=== PATIENT | female | born 1950 ===

== ENCOUNTER 2023-11-08 00:30 | Day surgery (SDC) | payer MEDICARE, OTHER, SELFPAY ==
[2023-11-08 09:04] VITALS: BP 147/68; PULSE 55; RESP 14; O2SAT 97
[2023-11-08 09:10] VITALS: BMI 38.7
--- NOTE | 2023-11-08 10:37 | WPDHPUPDATE1 ---
History and Physical Update Update Date/Time: 11/08/23 10:37 History and Physical has been reviewed, including an updated exam of the patient. There are NO changes in the patient's condition. Risks, benefits, and alternatives have been discussed and questions answered. Patient agrees to proceed with procedure.
--- NOTE | 2023-11-08 10:37 | W.PM.PROC2 ---
Procedure Note - Detailed Date of Procedure 11/08/23 Pre-op Diagnosis syncope Post-op Diagnosis Same Procedure Performed loop recorder implantationr Surgeon Karl Rivas MD Anesthesia Local ( 1% lidocaine) Indications recurrent syncope Findings Brief History of Present Illness: Patient is a very pleasant 72 yo female with past medical history significant for diabetes mellitus, hypertension, hyperlipidemia and history of symptomatic frequent PVCs with recurrent unexplained near-syncope and syncopal episodes with previously documented asymptomatic 3.1 second pause referred for loop recorder implantation for further evaluation for syncope. Description of Procedure After verbal and written informed consent was obtained from the patient risks, benefits, and alternatives explained in detail the patient agreed to proceed with the plan of care as outlined above. Patient was evaluated at bedside in the [facility] procedure room. Patient was placed the appropriate supine position. Left anterior chest wall was prepped and draped in the usual sterile fashion. Operators in appropriate sterile garb. The left 4th intercostal space was identified and marked. Utilizing approximately 30 cc of 1% subcutaneous lidocaine the left anterior chest wall was then locally anesthetized. After local anesthesia was achieved, 2 fingerbreadths left of the sternum at the 4th intercostal space was again identified and a 1 cm incision was made with the included skin punch tool. Following this with the included introducer, a tract was made subcutaneously at a 45 degree angle from the sternum. The introducer was then unlocked and the device deployed easily and without complication. The introducer was then removed and manual pressure was held with excellent hemostasis after implant of the Biotronik Biomonitor IV SN [id number]. The device was then interrogated and revealed excellent fidelity and measured at 1.63 mV. The incision was then approximated and closed using Steri-strips with satisfactory approximation. The incision was then covered with a sterile dressing. Complications: None Implants Successful implantation of Biotronik Biomonitor IV implantable loop recorder without complication. Estimated Blood Loss 1 Drains No Packing No Pathology None sent Complications No immediate complications Condition Stable Disposition Same day
[2023-11-08 10:48] VITALS: BP 158/69
== END 2023-11-08 11:48 | disposition home or self-care (01) ==
PROVIDERS: PCP Internal Medicine Infectious Disease; Visit Provider Internal Medicine Cardiovascular Disease
PROC: (CPT 33285; principal; 2023-11-08 10:00)
DX: R55 Syncope and collapse (principal); I10 Essential (primary) hypertension; I49.3 Ventricular premature depolarization; E11.9 Type 2 diabetes mellitus without complications; E78.5 Hyperlipidemia, unspecified
CPT/HCPCS: 33285; C1764